=== PATIENT | male | born 2000 | race Caucasian/White ===

== ENCOUNTER 2022-11-24 18:05 | Emergency (ER) | payer SELFPAY ==
[2022-11-24] MEDS ORDERED: Clindamycin 150 MG CAP ONE (19:52)
== END 2022-11-24 19:54 | disposition home or self-care (01) ==
LOC: CSHERS 18:05
DX: L05.01 Pilonidal cyst with abscess (principal); L03.317 Cellulitis of buttock
CPT/HCPCS: 99283